=== PATIENT | male | born 1990 | race Caucasian/White ===

== ENCOUNTER → 2018-04-20 10:02 | Outpatient (CLI) | payer BC, SELFPAY | PROVIDERS: Visit Provider Physician Assistant | DX: S43.082A Other subluxation of left shoulder joint, initial encounter (principal); X58.XXXA Exposure to other specified factors, initial encounter | CPT/HCPCS: 23350; 73222; 77002; A9577; Q9967 ==

== ENCOUNTER 2023-09-07 21:54 | Emergency (ER) | payer BC, SELFPAY ==
[2023-09-07 21:55] VITALS: BP 140/83; PULSE 107; RESP 18; TEMP 36.2; O2SAT 100; BMI 25.0
--- NOTE | 2023-09-07 22:18 | RAD_ITS ---
STUDY: X-RAY - LEFT ELBOW REASON FOR EXAM: Male, 33 years old. pain after fall TECHNIQUE: 3 view(s) of the elbow. COMPARISON: None. FINDINGS: Acute nondepressed fracture of the anterior aspect of the radial head. Normal radiocapitellar and ulnotrochlear articulations. The soft tissue structures are unremarkable. RAD/Elbow min 3 Views IMPRESSION: Acute nondepressed fracture of the anterior aspect of the radial head. Electronically Signed: Arthur Emerson MD at 22:47 EST ,
--- NOTE | 2023-09-07 22:19 | EDS_ITS ---
HPI History of Present Illness Chief Complaint: Upper Extremity Injury [facility] Medical History (Updated 09/07/23 @ 23:[address] Morris Mcginnis, DO) Arm injury Home Medications oxycodone 5 mg capsule 5 mg PO Q8H PRN pain 3 days #12 caps 09/07/23 [Rx Last Taken Unknown] Allergy/AdvReac Type Severity Reaction Status Date / Time No Known Allergies Allergy Verified 09/07/23 21:55 Social History Smoking Status: Unknown if ever smoked EXAM Physical Exam Const Vital Signs: 09/07/23 21:55 Temperature 97.2 F L Temperature Source Temporal Pulse Rate 107 H Respiratory Rate 18 Blood Pressure 140/83 H Blood Pressure Mean 102 Pulse Ox 100 Oxygen Delivery Method Room Air [facility] [place] Narrative Medical decision making narrative: HISTORY OF PRESENT ILLNESS: 33-year-old male presents with left arm pain at the elbow. States he was skiing and fell down REVIEW OF SYSTEMS: Pertinent positives: Left arm pain, left elbow pain Pertinent negatives: PHYSICAL EXAM: Nursing triage notes reviewed, Vital signs reviewed Constitutional: please see mdm HENT: MMM Eyes: Pupils equal round and reactive to light, Extraocular muscles intact Neck: No stridor, no JVD, full neck ROM Lungs: Clear to auscultation, No wheezing or rales. No increased work of breathing, no conversational dyspnea, no accessory muscle use, no nasal flaring. No respiratory distress noted Heart: Regular rate and rhythm, No murmurs, No rubs and No gallops, 2+ distal pulses (radial, femoral, posterior tibial) in all extremities Abdomen: Soft, there is no tenderness, rigidity, rebound or guarding, no obvious peritoneal signs, no palpable pulsatile abdominal masses, no auscultated a bdominal bruit : No CVAT Extremities: No edema Neuro: No focal neurological deficits, cranial nerves II through XII intact, 5/5 strength in all extremities. Intact sensation to light touch in all extremities, 2+ reflexes bilateral patella tendons. Normal gait. No ataxia. Skin: No rash or lesions noted MEDICAL DECISION MAKING: Chief Complaint: Left arm pain External records reviewed: No recent Anne imaging of the involved extremity MDM Narrative: Patient was hemodynamically stable, afebrile, [id number]. I considered the following differential diagnosis: Elbow fracture, dislocation, contusion ALL IMAGES (IF OBTAINED) HAVE BEEN PERSONALLY REVIEWED AND INTERPRETED BY MYSELF. X-ray of the patient's elbow showed evidence of a proximal radial head fracture. Will provide home narcotic pain medication, sling and close/prompt orthopedic follow-up The patient and/or family, caregivers express understanding. The patient and/or family, caregivers agrees with the plan. Shared decision making: I will have a discussion with the patient and or visitors regarding risk/benefits of further testing or admission. They will be made aware of of the risk/benefits inherent in this decision they will be given the opportunity to voice understanding. Total critical care time today provided was at least 0 minutes. This excludes separately billable procedures. Critical care time (if documented) is secondary to the patient having high probability of clinically significant/life threatening deterioration in the patient's condition which required my urgent intervention. Impression: 1. Left radial head fracture Dispo: Discharge home Discharge Plan Triage Chief Complaint: Upper Extremity Injury ED Provider: Morris Mcginnis Dx/Rx/DC Orders Clinical Impression: Closed fracture of radial head Instructions: ED Radial Head Fracture Prescriptions: New oxycodone 5 mg capsule 5 mg PO Q8H PRN (Reason: pain) 3 Days Qty: 12 0RF Primary Care Provider: Care Physician,No Primary Referrals: Oneil Nicole MD [Med Staff - Active Staff] - Disposition Disposition: Home, Self Care Discharge Date/Time: 09/07/23 23:30 Capacity Legal Playground Worker Reflex Medical hold order details:: IF a medical hold is selected below, a suggested order for a MEDICAL HOLD will reflex upon signing the document. Next of kin: [place] law dictates a PRIORITY LIST for identifying legal decision-maker/legal next of kin in the following order (LNOK): 1st: The patient?s legal guardian, if any 2nd: The patient's spouse (if status is questionable, consult Risk Management) 3rd: The patient?s adult child(edilberto) (majority, if multiple children) 4th: The patient?s parents 5th: The patient?s adult siblings (majority, if multiple children siblings)
== END 2023-09-07 23:30 | disposition home or self-care (01) ==
PROVIDERS: Emergency Provider Emergency Medicine; Visit Provider Emergency Medicine
DX: S52.122A Displaced fracture of head of left radius, initial encounter for closed fracture (principal); W19.XXXA Unspecified fall, initial encounter; Y93.23 Activity, snow (alpine) (downhill) skiing, snowboarding, sledding, tobogganing and snow tubing
CPT/HCPCS: 73080; 99283